=== PATIENT | male | born 1945 | race Two or more races ===

== ENCOUNTER 2019-12-29 13:24 | Inpatient (IN) | payer OTHER ==
[~2019-12-29] VITALS: Wt 6.0 kg
[2019-12-29] MEDS ORDERED: CREON DR 24,001 EACH (14:00)
[2019-12-29] MEDS ORDERED: FORTAMET1000 MG (14:00)
[2019-12-29] MEDS ORDERED: JANUVIA100 MG (14:01)
--- NOTE | 2019-12-29 14:01 | NUR ---
SE RECIBE PTE. MASCULINO ALERTA CONCIENTE Y ORIENTADO DSQUE REFIERE DOLOR ABDOMINAL DESDE HACE BRIAN MEAD REFIERE FUE LUEGO DE INGERIR ALIMENTO EL VIERNES
--- NOTE | 2019-12-29 16:16 | NUR ---
PTE ALERTA Y ORIENTADO X3, SE LE SHARA MUESTRAS DE LAB. SAIDA ORDEN MEDICA BAJO MEDIDAS ASEPTICAS. SE CANALIZA AREA AILYN DE EDEMA Y DE ENROJECIMIENTO. SE EDUCA A PTE SOBRE TRATAMIENTO MEDICO Y SE EDUCA SOBRE TRATAMIENTO MEDICO.
--- NOTE | 2019-12-30 02:00 | NUR ---
SE RECIBE PT ALERTA Y ORIENTADO X3 ESFERAS EN DARIA CON BARANDAS ELEVADAS Y FRENOS COLOCADOS. HEPARIN LOCK E IVLFUIDS PATENTES. PT TOL[place] TX. SE MANTIENE BAJO OBSERVACION POR CAMBIOS EN SCAR. PENDIENTE VISITA DE CIRUJANO. PT TRANQUILO Y SIN DIFICULTAD RESPIRATORIA.
--- NOTE | 2019-12-30 02:02 | NUR ---
SE INSERTA NGT EN ORIFICIO RT PATENTE DRENANDO 500 ML. SE CONECTA EN SUCCION INTERMITENTE SAIDA ORDEN MEDICA. PACIENTE MASCULINO ESTABLE AL MOMENTO Y CONSULTADO CON CIRUGIA.
--- NOTE | 2019-12-30 07:00 | NUR ---
SE RECIBE PACIENTE ALERTA Y ORIENTADO EN [place] BRIAN ESFERAS EN DAR[place], SE OBSERVA IVF'S PATENTE AILYN DE EDEMA Y ENROJECIMIENTO BAJANDO UN RL @ 100ML/HR. SE OBSERVA NGT EN FOSA NASAL RT TO LIS. PENDIENTE CONSULTA CON DR. MERCADO.
== END 2020-01-04 12:18 | disposition home or self-care (01) | DRG 337 ==
LOC: ER 13:24 → O/R 12-30 07:49 → SURG 12-30 07:49 → SEC-K 12-30 07:49 → O/R 12-30 15:11 → SURH 12-30 19:44 → SURG 12-30 19:53
PROVIDERS: ADMIT Surgery; ATTEND Surgery
PROC: 0DNW0ZZ Release Peritoneum, Open Approach (ICD-10-PCS; principal; 2019-12-30 14:15)
DX: K56.51 Intestinal adhesions [bands], with partial obstruction (principal); Z20.828 Contact with and (suspected) exposure to other viral communicable diseases; E11.9 Type 2 diabetes mellitus without complications

== ENCOUNTER 2020-01-31 08:42 | Outpatient (CLI) | payer OTHER ==
[~2020-01-31] VITALS: Ht 182.9 cm; Wt 89.8 kg
[~2020-01-31 08:42] MED LIST: CREON DR 24,001 EACH; FORTAMET1000 MG; JANUVIA100 MG
== END 2020-01-31 14:44 | disposition home or self-care (01) ==
LOC: OFIC 805 08:42
PROVIDERS: ATTEND Otolaryngology Otology & Neurotology
DX: H69.83 Other specified disorders of Eustachian tube, bilateral (principal); J31.0 Chronic rhinitis; H61.23 Impacted cerumen, bilateral

== ENCOUNTER 2020-07-22 14:30 | Outpatient (CLI) | payer OTHER | END 2020-07-22 15:27 | disposition home or self-care (01) | LOC: OFIC 805 14:30 | PROVIDERS: ATTEND Otolaryngology Otology & Neurotology | DX: H91.8X3 Other specified hearing loss, bilateral (principal); H69.83 Other specified disorders of Eustachian tube, bilateral ==

== ENCOUNTER 2020-12-30 08:00 | Outpatient (CLI) | payer OTHER | END 2020-12-30 08:20 | disposition home or self-care (01) | LOC: PPH VACUNA 08:00 | PROVIDERS: ATTEND Emergency Medicine Pediatric Emergency Medicine | DX: Z23 Encounter for immunization (principal) ==

== ENCOUNTER 2021-08-05 09:55 | Inpatient (IN) | payer OTHER ==
[~2021-08-05] VITALS: Ht 182.9 cm; Wt 99.8 kg
== END 2021-08-08 13:46 | disposition home or self-care (01) | DRG 389 ==
LOC: ER 09:55 → SURH 15:53 → SEC-K 20:22 → SURH 22:04
PROVIDERS: ADMIT Surgery; ATTEND Surgery
PROC: BW21ZZZ Computerized Tomography (CT Scan) of Abdomen and Pelvis (ICD-10-PCS; principal; 2021-08-05)
PROC: 3E0F7SF Introduction of Other Gas into Respiratory Tract, Via Natural or Artificial Opening (ICD-10-PCS; 2021-08-05)
DX: K56.699 Other intestinal obstruction unspecified as to partial versus complete obstruction (principal); N17.8 Other acute kidney failure; E11.22 Type 2 diabetes mellitus with diabetic chronic kidney disease; E11.65 Type 2 diabetes mellitus with hyperglycemia; N18.2 Chronic kidney disease, stage 2 (mild); E86.0 Dehydration; C61 Malignant neoplasm of prostate; E66.8 Other obesity; E87.5 Hyperkalemia; E03.8 Other specified hypothyroidism; Z20.822 Contact with and (suspected) exposure to COVID-19

== ENCOUNTER 2021-09-02 10:38 | Outpatient (CLI) | payer OTHER | END 2021-09-02 10:53 | disposition home or self-care (01) | LOC: PPH VACUNA 10:38 | PROVIDERS: ATTEND Emergency Medicine Pediatric Emergency Medicine | DX: Z23 Encounter for immunization (principal) ==

== ENCOUNTER 2022-02-15 18:02 | Emergency (ER) | payer OTHER ==
[~2022-02-15] VITALS: Ht 182.9 cm; Wt 98.0 kg
== END 2022-02-15 21:59 | disposition home or self-care (01) ==
LOC: ER 18:02
DX: R50.9 Fever, unspecified (principal); R31.9 Hematuria, unspecified; Z20.822 Contact with and (suspected) exposure to COVID-19; E11.9 Type 2 diabetes mellitus without complications; Z79.84 Long term (current) use of oral hypoglycemic drugs; J18.9 Pneumonia, unspecified organism